=== PATIENT | female | born 1985 | race Hispanic/Latino ===

== ENCOUNTER 2020-04-08 10:59 | Inpatient (IN) | payer OTHER ==
[2020-04-08] VITALS (9 sets, daily range): BP systolic 122–137; BP diastolic 70–87
[~2020-04-08] VITALS: Ht 160 cm; Wt 63.5 kg
[2020-04-08] MEDS ORDERED: MULTTAB20 PO (11:12)
[2020-04-08 12:08] LABS: HEMATOCRIT 37.7 % (36.0-47.0); HEMOGLOBIN 12.9 g/dl (12.0-15.5); MEAN CORPUSCULAR HEMOGLOBIN 31.4 pg (27.0-33.0); MEAN CORPUSCULAR HGB CONC 34.2 g/dl (32.0-36.5); MEAN CORPUSCULAR VOLUME 91.7 fl (80.0-96.0); PLATELET COUNT, AUTOMATED 182 10^3/uL (150-450); RED BLOOD COUNT 4.11 10^6/uL (4.00-5.40); WHITE BLOOD COUNT 9.2 10^3/uL (4.0-10.0)
[2020-04-08] MEDS ORDERED: LACTATED RINGER'S 1000 ML IV STA (13:02)
[2020-04-08] MEDS ORDERED: LR 1,000 ML IV SCH (13:02)
[2020-04-08] MEDS ORDERED: miSOPROStol 25MCG 1/4 TABLET PO ONE ×2 (13:15→17:30)
[2020-04-08 13:32] LABS: ALT/SGPT 20 U/L (12-78); BILIRUBIN,TOTAL 0.3 MG/DL (0.2-1.0); CREATININE FOR GFR 0.59 MG/DL (0.55-1.30); GLOMERULAR FILTRATION RATE > 60.0 (>60); LDH LACTATE DEHYDROGENASE 161 U/L (84-246); URIC ACID 3.4 MG/DL (2.6-6.0)
--- NOTE | 2020-04-08 13:46 | HPEPDOC ---
Obstetrical History & Physical General Date of Admission Apr 08, 2020 at 10:59 History of Present Illness 34 yo G1 @ 37+0 by LMP C/W 11W US admitted for Gestational Hypertension. she reports any concerns today. she had GBS collected in clinic last week, but I do not have access to ahlta. so, i will treat patient at GBS unknown and will only treat if patient meets risk factor ( fever or ruptured for more than 18 hrs). reports regular movements, denies any LOF. notes some contractions. Care Care: Good Care Dating Final EDC: Apr 29, 2020 Final EDC by: LMP LMP: July 24, 2019 Estimated Date of Confinement: Apr 29, 2020 EGA at Admission: 37 Antepartum Course Diagnos(e)s 1. Gestational Hypertension- pre e labs pending 2. Echogenic Bowel on anatomy scan- negative work up. 3. GBS unknown- no risk factors yet.. 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 Past Medical History Medical History denies thyroid disease, asthma, diabetes Surgical History: Denies/None Social History Marital Status: Family situation: Spouse/partner home Psychosocial History: No pertinent psych hx * Smoker: non-smoker Alcohol: Denies Drugs: denies Abuse Violence Screening Have you been hit/kicked/slapp: No Have you been sexually assault: No Imunizations Tdap status: current Influenza Status: needs Allergies Coded Allergies: NSAIDS (Non-Steroidal Anti-Inflamma (Verified Allergy, Intermediate, 04/08/20) aspirin (Verified Allergy, Intermediate, Rash, Itching, 04/08/20) Medications Scheduled No122/Iron/Folic Acid ( Multi Tablet) 1 Each Tablet, 1 TAB PO DAILY Physical Examination Physical Examination GENERAL: Alert and oriented times three. BREAST: . ABDOMEN: Gravid and non-tender to touch. FETUS: Is vertex (VTX) by sterile vaginal examination (SVE), and TAUS HEART RATE: Regular rate and rhythm. LUNGS: Clear to auscultation EXTREMITIES: No edema. No clonus. Vital Signs/I&O Vital Signs Date Time Temp Pulse Resp B/P (MAP) Pulse Ox O2 Delivery O2 Flow Rate FiO2 04/08/20 13:00 92 135/85 (102) 1/18/21 11:19 98.6 17 Laboratory Data 24H LABS Laboratory Tests 2 04/08/20 11:13: Serology Scanned Report Hepatitis B Testing 04/08/20 11:37: Nucleated Red Blood Cells % (auto) 0.0, Syphilis Serology NONREACTIVE, Coronavirus (COVID-19)(PCR) NEGATIVE CBC/BMP Laboratory Tests 04/08/20 11:37 Pertinent Laboratoy Data Blood Type: O+ RBC Antibody Screen: Negative HIV: Negative Hepatitis B: Negative Hepatitis C: Unknown Rapid Plasma Reagin: Nonreactive Rubella: Immune Varicella: Immune Chlamydia/Gonorrhea: Negative Group B Streptococcus: Unknown Quad Screen Test: Unknown Cystic Fibrosis: Negative Glucose Tolerance Test: 145 Anatomy Ultrasound Placenta Location: Anterior Other Ultrasounds M US ON 02/21/2020: NORMAL US, NO Echogenic bowels noted Vaginal Examination Dilation: 1cm Effacement: 50% Station: -2 Cervical Consistency: Soft Cervical Position: Middle Presentation: Cephalic presentation Assessment Heart Rate (FHR): 150 Variability: Moderate Decelerations: None Tocometer Contractions: Yes Frequency: irregular Duration: less than 60 seconds Strength: palpated as mild Multi-drug resistant Organism: No history of MDRO Assessment/Plan Assessment 34 yo G1 @ 37+0 by LMP C/W 11W US admitted for Gestational Hypertension. normal vital an admission. hemodynamically stable. RH Pos, cephalic on US, GBS unknown w/o risk factors. 1. Gestational Hypertension- pre e labs pending 2. Echogenic Bowel on anatomy scan- negative work up. 3. GBS unknown- no risk factors yet.. Plan Admit and orient. 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 Diet: one meal, then Clears Group B Streptococcus (GBS) unknown w/o risk factors ( no prematurity, no fever, not ruptured for over 18 hrs, no hx of GBS affected ) Labs and intravenous (IV) per unit protocol. Counseled on Pitocin and induction of labor (IOL). Lactated Ringers (LR): Bolus 1000 mL, then at 125 mL/hr. Anticipate [normal spontaneous delivery (). C-S as appropriate. ADRIAN THOMSON MD Apr 08, 2020 13:46
[2020-04-08 14:20] LABS: CREATININE,RANDOM URINE 84.5 MG/DL; TOTAL PROTEIN,RANDOM URINE 12.8 MG/DL (0.0-12.0)
[2020-04-08] MEDS ORDERED: miSOPROStol 25MCG 1/4 TABLET PV ONE (21:00)
[2020-04-09] VITALS (24 sets, daily range): BP systolic 101–150; BP diastolic 55–94
--- NOTE | 2020-04-09 06:29 | IPNPDOC ---
Obstetrical Progress Note Date of Service Apr 09, 2020 Subjective Late entry due to computer malfunction Patient was evaluated at Midnight on apr 09. She reports no pain and not feeling her contractions. has received 3 doses of Buccal cytotec. FHT: 135. Mod butch,+accels-decels---cat I tracing [place]: 3-06/29 SVE" 2/50/-2, Double lumen mace bulb placed 80/80 A/P Continues to be in latent labor. cat I tracing, normal vital since admission. p atient can have one meal and we can sleep with the mace bulb in place for cervical ripening. can resume continues monitoring in the AM. Objective Vital Signs Date Time Temp Pulse Resp B/P (MAP) Pulse Ox O2 Delivery O2 Flow Rate FiO2 04/08/20 18:50 82 135/75 (95) 04/08/20 18:01 98.8 16 ADRIAN THOMSON MD Apr 09, 2020 06:29
[2020-04-09] MEDS ORDERED: OXYTOCIN DRIP 30 UNITS in IV 1 EA IV SCH (09:45)
[2020-04-09] MEDS: LR 1,000 ML IV SCH ×2 (10:00→16:29)
--- NOTE | 2020-04-09 11:28 | IPNPDOC ---
Obstetrical Progress Note Date of Service Apr 09, 2020 Subjective 34 yo at 37w1d with DAWNA of 04/29/2020 admitted for gHTN. She with cook balloon that was placed at 0010 and is intact and in place. She denies any headache, chest pain, RUQ pain, and visual changes at this time. She has no complaints at this time. She has supportive family at the bedside. Objective Vital Signs Date Time Temp Pulse Resp B/P (MAP) Pulse Ox O2 Delivery O2 Flow Rate FiO2 04/09/20 08:48 96 18 120/83 (95) 04/09/20 07:24 98.8 Assessment Heart Rate (FHR): 135 Variability: Moderate Accelerations: Present Decelerations: None Tocometer Contractions: Yes Frequency: other (Occassional ) Assessment and Plan Age: 34 : 1 Term: 0 Pre-term: 0 Abortions: 0 Livin EGA at Admission: 37 (+0) Weeks & Days 37w1d Status: Reassuring Group B Streptococcus: Negative Anticipate: Vaginal Delivery Additional Comments Will start pitocin augmentation JASMINA JEAN-BAPTISTE CNM Apr 09, 2020 09:43
--- NOTE | 2020-04-09 12:37 | IPNPDOC ---
Obstetrical Progress Note Date of Service Apr 09, 2020 Subjective 34 yo at 37w1d admitted for gHTN. She denies headache, chest pain, RUQ pain, and visual changes. She has no further complaints at this time. She has supportive family at the bedside. Objective Vital Signs Date Time Temp Pulse Resp B/P (MAP) Pulse Ox O2 Delivery O2 Flow Rate FiO2 04/09/20 10:00 88 18 120/64 (82) 04/09/20 07:24 98.8 Cook balloon intact removed with 80/80 removed out of the vaginal and cervical balloons. Assessment Heart Rate (FHR): 135 Variability: Moderate Accelerations: Present Decelerations: None Tocometer Contractions: Yes Duration: other (every 3-5 minutes) Sterile Vaginal Examination Dilation: 6 cm Effacement (%): 50% Station: -3 Cervical Position: Posterior Postion/Presentation: Cephalic presentation Assessment and Plan Age: 34 : 1 Term: 0 Pre-term: 0 Abortions: 0 Livin EGA at Admission: 37 (+0) Weeks & Days 37w1d Status: Reassuring Group B Streptococcus: Negative Anticipate: Vaginal Delivery JASMINA JEAN-BAPTISTE CNM Apr 09, 2020 12:37
--- NOTE | 2020-04-09 21:12 | IPNPDOC ---
Text Note Date of Service The patient was seen on 04/09/20. NOTE Item Value Date Time White Blood Count 9.2 10^3/uL 04/08/20 1137 Red Blood Count 4.11 10^6/uL 04/08/20 1137 Hemoglobin 12.9 g/dl 04/08/20 1137 Hematocrit 37.7 % 04/08/20 1137 Mean Corpuscular Volume 91.7 fl 04/08/20 1137 Mean Corpuscular Hemoglobin 31.4 pg 04/08/20 1137 Mean Corpuscular Hemoglobin Concent 34.2 g/dl 04/08/20 1137 Red Cell Distribution Width 12.0 % 04/08/20 1137 Platelet Count 182 10^3/uL 04/08/20 1137 Nucleated Red Blood Cells % (auto) 0.0 % 04/08/20 1137 REVIEW PROGRESS TO DATE 04/09/2020 2100 HRS . PATIENT 34 YO AT 37 WEEKS FOR IOL DUE TO GHTN TO DATE HAD3 CYTOTEC 12 HOURS OF BALLOON CATHETER AND PITOCIN 20 MUNITS STARTED AT 100 AM 04/09/2020. HAS NORMAL BP THROUGHOUT THE DAY STILL 3 CM POSTERIOR -3 STATION THICK. CATEGORY 1 STRIP . PLAN TONIGHT D/C PITOCIN SHOWER SHAWN REVIEW PLAN TOMORROW AM VS,Fishbone, I+O VS, Fishbone, I+O Item Value Date Time Urine Random Creatinine 84.5 MG/DL 04/08/20 1338 Urine Random Total Protein 12.8 MG/DL H 04/08/20 1338 Item Value Date Time Creatinine 0.59 MG/DL 04/08/20 1137 Glomerular Filtration Rate > 60.0 04/08/20 1137 Uric Acid 3.4 MG/DL 04/08/20 1137 Total Bilirubin 0.3 MG/DL 04/08/20 1137 Aspartate Amino Transf (AST/SGOT) 18 U/L 04/08/20 1137 Alanine Aminotransferase (ALT/SGPT) 20 U/L 04/08/20 1137 Lactate Dehydrogenase 161 U/L 04/08/20 1137 Vital Signs Date Time Temp Pulse Resp B/P (MAP) Pulse Ox O2 Delivery O2 Flow Rate FiO2 04/09/20 18:22 78 18 118/60 (79) 04/09/20 15:18 98.2 I&O- Last 24 Hours up to 6 AM 04/09/20 06:00 Intake Total 811 ml Balance 811 ml Michel Zarco MD Apr 09, 2020 21:07
[2020-04-10 03:02] VITALS: BP 107/52
[2020-04-10 06:34] VITALS: BP 127/84
--- NOTE | 2020-04-10 09:52 | REP ---
INDICATION: GROWTH COMPARISON: None. TECHNIQUE: Transabdominal obstetrical ultrasound with color Doppler evaluation. FINDINGS: Examination demonstrates a single live intrauterine in cephalic presentation. motion is identified by technologist. Placenta is noted anterior and grade 2 without evidence for placenta previa or abruption. Amniotic fluid volume is normal. Cervix appears closed. Nuchal cord cannot be excluded. APRIL: 16.3 cm (7.4-24.3) Biophysical profile score: 8/8. Gestational age by LMP 37 weeks 2 days with DAWNA 04/29/2020. Gestational age by current measurements 35 weeks 4 days with DAWNA 05/11/2020. FHR equals 145 beats per minute. Estimated weight by current measurements 2926 grams (34thpercentile). Anatomical evaluation is limited and while no gross abnormalities are identified. The femur length and humerus length fall below the 5th percentile and may warrant correlation. IMPRESSION: 1. Single live intrauterine in cephalic presentation. 2. Nuchal cord cannot be excluded. 3. Amniotic fluid index and biophysical profile score are normal. <Electronically signed by Rosalio Parrish > 04/10/20 [id number]
--- NOTE | 2020-04-10 10:55 | DS.PDOC ---
Discharge Summary General Date of Admission Apr 08, 2020 at 10:59 Date of Discharge Apr 10, 2020 Discharge Summary HOSPITAL COURSE: Ms. Skaggs is a 34 yo who was admitted for an IOL on 08Apr2020 for concern of gestational hypertension at 37+0 weeks gestation. Her induction process was slow and she ultimately did not get past 3cm of dilation after >48 hours. Upon further records review, it became apparent that Sofie did not have gestational hypertension, but chronic hypertension. Pre eclampsia labs were obtained and were unremarkable. Her blood pressures were almost all normal throughout her stay on L&D. She had no symptoms. A BPP and growth scan were obtained on 10Apr2020 and were unremarkable (BPP was 8/8). The fetus has had a Cat I tracing throughout her hospital stay. She was given the option to continue with IOL or be discharged home with plan to proceed with IOL for CHTN on 16Apr2020 when she will be 38+1 weeks gestation. All risks and benefits were discussed of each strategy. She opted to be discharged home with close follow up in the office and plan for IOL on 16Apr2020. DISCHARGE MEDICATIONS: Please see below. ALLERGIES: Please see below. PHYSICAL EXAMINATION ON DISCHARGE: VITAL SIGNS: Please see below. GENERAL: AAOX3, sitting up in bed, pleasant and conversant, NAD CARDIOVASCULAR EXAMINATION: RRR RESPIRATORY EXAMINATION: CTAB ABDOMINAL EXAMINATION: Gravid uterus appropriate size for gestational age. No fundal tenderness. EXTREMITIES: No edema PSYCHIATRIC EXAMINATION: Affect appropriate LABORATORY DATA: Please see below. ACTIVITY: As tolerated DIET: Regular DISCHARGE PLAN: Discharge home DISPOSITION: Discharge home. DISCHARGE INSTRUCTIONS: 1. Appointment at [facility] on 12Apr2020 at 0805. ITEMS TO FOLLOWUP ON ON OUTPATIENT: 1. Appointment at [facility] on 12Apr2020 at 0805. DISCHARGE CONDITION: Stable. TIME SPENT ON DISCHARGE: Greater than 20 minutes. Radha Hernandez, Vital Signs/I&Os Vital Signs Date Time Temp Pulse Resp B/P (MAP) Pulse Ox O2 Delivery O2 Flow Rate FiO2 04/10/20 06:34 98.3 77 16 127/84 (98) I&O- Last 24 Hours up to 6 AM 04/10/20 05:59 Intake Total 1230 ml Output Total 1400 ml Balance -170 ml Discharge Medications Scheduled No122/Iron/Folic Acid ( Multi Tablet) 1 Each Tablet, 1 TAB PO DAILY, (Reported) Allergies Coded Allergies: NSAIDS (Non-Steroidal Anti-Inflamma (Verified Allergy, Intermediate, 04/08/20) aspirin (Verified Allergy, Intermediate, Rash, Itching, 04/08/20) RADHA HERNANDEZ DO Apr 10, 2020 10:55
--- NOTE | 2020-04-10 11:19 | IPNPDOC ---
Text Note Date of Service The patient was seen on 04/10/20. NOTE I assumed care of Sofie this morning. She's a 34 yo at 37+2 weeks gestation who was admitted for an IOL on 08Apr2020 for apparent gestational hypertension. Toxemia labs were obtained and were unremarkable, to include a pr:cr of 0.15. Her induction process was started with cytotec X3, and then a cook balloon. The cook balloon was removed yesterday and she was started on pitocin. She progressed to potentially 6cm dilated but was feeling no pain, despite being on 20mU of pitocin. Blood pressures remained essentially normal throughout her induction process, with only [address] Zarco took over yesterday evening and I received report from him. He examined her yesterday evening and felt her cervix was only 2-3cm dilated, thick, and posterior. He halted her induction yesterday evening at ~1900 and planned to re evaluate in the morning whether it should be continued or not. This morning, Sofie reports feeling well. She was able to sleep overnight. She denied any headaches, RUQ pain, visual changes, or SOB. Chaperoned by LUCERO Red Cervix: 3/50/-4, posterior. FHR tracing: Cat I with moderate variability, +accels, no decels. No contractions on tocometer. Formal BPP and growth scan at [facility]ology on 10Apr2020: 8/8 BPP with APRIL 16cm, and weight 2926 grams (34th percentile) I had a long discussion with Sofie and her regarding the plan moving forward. She is certainly not in active labor. She does not appear to have gestational hypertension. I reviewed her [facility] medical records and she has had elevated BP readings going back to 2018, the furthest back we can look. She rules in for chronic hypertension instead. In addition, her blood pressure (CHTN) does not appear to be worsening. status is reassuring today, her blood pressure is normal, and she has no symptoms of toxemia. I offered resuming her induction of labor this morning, or discharging her home (with close follow up) with plan for IOL on 16Apr2020 at 38+1 weeks gestation for CHTN. I discussed all risks and benefits of each decision. After thorough discussion, Sofie and her desire to return home. She will follow up with me in the office on Wednesday, 12Apr2020 at 0805 for an NST/APRIL and an appointment afterwards. I scheduled her for IOL on 16Apr2020 at 38+1 weeks gestation and I will be concrete products dispatcher that evening. She understands that she will be contacted by the L&D staff about what time to come in on that day. She also understands to return to care sooner should she experience headaches, RUQ pain, visual changes, SOB, bleeding, painful contractions, leakage of fluid, or decreased movement. All patient and questions answered to their satisfaction. 45 minutes of patient care Elmer Hernandez DO VS,Bryan, I+O VS, Bryan, I+O Vital Signs Date Time Temp Pulse Resp B/P (MAP) Pulse Ox O2 Delivery O2 Flow Rate FiO2 04/10/20 06:34 98.3 77 16 127/84 (98) I&O- Last 24 Hours up to 6 AM 04/10/20 05:59 Intake Total 1230 ml Output Total 1400 ml Balance -170 ml ELMER HERNANDEZ DO Apr 10, 2020 11:19
== END 2020-04-10 11:28 | disposition home or self-care (01) | DRG 833 ==
LOC: M LDI 10:59
PROVIDERS: ADMIT Obstetrics & Gynecology; ATTEND Obstetrics & Gynecology
PROC: 3E0DXGC Introduction of Other Therapeutic Substance into Mouth and Pharynx, External Approach (ICD-10-PCS; principal; 2020-04-08)
DX: O10.913 Unspecified pre-existing hypertension complicating pregnancy, third trimester (principal); Z3A.37 37 weeks gestation of pregnancy; Z88.6 Allergy status to analgesic agent; O61.0 Failed medical induction of labor

== ENCOUNTER 2020-04-16 07:10 | Inpatient (IN) | payer OTHER ==
[~2020-04-16] VITALS: Ht 160 cm; Wt 63.7 kg
[2020-04-16] VITALS (19 sets, daily range): BP systolic 107–144; BP diastolic 58–89
[~2020-04-16 07:10] MED LIST: MULTTAB20 PO
[2020-04-16 11:03] LABS: HEMATOCRIT 38.2 % (36.0-47.0); HEMOGLOBIN 12.8 g/dl (12.0-15.5); MEAN CORPUSCULAR HEMOGLOBIN 31.1 pg (27.0-33.0); MEAN CORPUSCULAR HGB CONC 33.5 g/dl (32.0-36.5); MEAN CORPUSCULAR VOLUME 92.9 fl (80.0-96.0); PLATELET COUNT, AUTOMATED 184 10^3/uL (150-450); RED BLOOD COUNT 4.11 10^6/uL (4.00-5.40); WHITE BLOOD COUNT 9.3 10^3/uL (4.0-10.0)
[2020-04-16] MEDS: LR 1,000 ML IV SCH ×2 (12:38→19:23)
[2020-04-16] MEDS: OXYTOCIN DRIP 30 UNITS in IV 1 EA IV SCH (12:39)
--- NOTE | 2020-04-16 12:48 | HPEPDOC ---
Obstetrical History & Physical General Date of Admission Apr 16, 2020 at 07:10 History of Present Illness Pt presenting for scheduled induction for HTN not on medications (chronic vs. gestational), denies bleeding, LOF, states reassuring movement and irregular contractions. Denies GAUTHIER, Vision changes, RUQ pain, or edema. 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 Past Medical History Medical History HTN Surgical History: [place] teeth Family History Significant Family History: Cancer (mother-liver cancer) Social History Marital Status: Family situation: Spouse/partner home Psychosocial History: No pertinent psych hx * Smoker: non-smoker Alcohol: Denies Drugs: denies Abuse Violence Screening Have you been hit/kicked/slapp: No Have you been sexually assault: No Imunizations Tdap status: current Allergies Coded Allergies: NSAIDS (Non-Steroidal Anti-Inflamma (Verified Allergy, Intermediate, 04/08/20) aspirin (Verified Allergy, Intermediate, Rash, Itching, 04/08/20) Medications Scheduled No122/Iron/Folic Acid ( Multi Tablet) 1 Each Tablet, 1 TAB PO DAILY Physical Examination Physical Examination GENERAL: Alert and oriented times three. BREAST: . ABDOMEN: Gravid and non-tender to touch. FETUS: Is vertex (VTX) by sterile vaginal examination (SVE), fetus is vertex (VTX) by Abelardo and TAUS. HEART RATE: Regular rate and rhythm. LUNGS: Clear to auscultation (CTA). EXTREMITIES: No edema. No clonus. Deep tendon reflexes (DTRs) normal. Laboratory Data 24H LABS Laboratory Tests 2 04/16/20 07:17: Serology Scanned Report Hepatitis B Testing 04/16/20 10:54: Nucleated Red Blood Cells % (auto) 0.0 CBC/BMP Laboratory Tests 04/16/20 10:54 Urine Culture: No Growth Pertinent Laboratoy Data Blood Type: O+ RBC Antibody Screen: Negative HIV: Negative Hepatitis B: Negative Rapid Plasma Reagin: Nonreactive Rubella: Immune Varicella: Immune Chlamydia/Gonorrhea: Negative Group B Streptococcus: Negative Quad Screen Test: Negative Cystic Fibrosis: Negative Anatomy Ultrasound Placenta Location: Anterior Normal Anatomy: Yes Placenta Previa: No Vaginal Examination Dilation: 4 cm Effacement: 70% Station: -3 Cervical Consistency: Soft Cervical Position: Middle Presentation: Cephalic presentation Position: Vertex (occiput) Assessment Heart Rate (FHR): 130 Variability: Moderate Accelerations: Positive Decelerations: None Tocometer Contractions: Yes Frequency: every 2-5 min. Duration: greater than 60 seconds Strength: palpated as mild, resting tone palp/soft Multi-drug resistant Organism: No history of MDRO Assessment/Plan Assessment Sofie is a 34-year-old (G)1 para (P)0 at 38+1 weeks by 11+4-week ultrasound. Presents to Labor and Delivery (L&D) for scheduled IOL. Plan Admit and orient. Growth Media Mixer Mushroom and consent for IOL and delivery. Diet: clear liquid. Group B Streptococcus (GBS) negative. Labs and intravenous (IV) per unit protocol. Counseled on Pitocin and induction of labor (IOL). Lactated Ringers (LR): at 125 mL/hr. Anticipate [normal spontaneous delivery ()]. C-S as appropriate. SUGEY COFFMAN CNM Apr 16, 2020 12:48
--- NOTE | 2020-04-16 21:02 | IPNPDOC ---
Text Note Date of Service The patient was seen on 04/16/20. NOTE Presented to room for assessment of progress. Sofie reports feeling well, and only endorses mild cramping. She continues to deny any headaches, RUQ pain, or visual changes. Vitals - BPs normal to only mildly elevated. Chaperoned by RN Cervix: /-3, posterior. head ballotable. FHR tracing: Cat I with moderate variability, +accels, no decels, ctx Q 3-4 minutes Sofie has been on 20mU of pitocin for nearly the last 3 hours. No real progress has been made. She is not in active labor and head is not well engaged enough to perform amniotomy. We discussed the next step moving forward. She reports feeling very tired and hungry. Plan will be to stop pitocin now, allow her to shower and eat, then administer dose of 50mg cytotec PO. 4-6 hours after that dose we will restart pitocin. Will AROM when feasible to do so. All patient questions answered. DO JEISON Fowler Fishbone I+O VSBryan, I+O Laboratory Tests 04/16/20 10:54 Vital Signs Date Time Temp Pulse Resp B/P (MAP) Pulse Ox O2 Delivery O2 Flow Rate FiO2 04/16/20 20:29 96 18 128/83 (98) 04/16/20 19:29 97.3 98 Room Air RADHA ARREAGA DO Apr 16, 2020 21:02
[2020-04-16] MEDS ORDERED: miSOPROStol 50MCG 1/2 TABLET PO ONE (21:30)
[2020-04-17] VITALS (14 sets, daily range): BP systolic 106–132; BP diastolic 53–72
[2020-04-17] MEDS: LR 1,000 ML IV SCH ×2 (04:19→10:27)
[2020-04-17] MEDS: OXYTOCIN DRIP 30 UNITS in IV 1 EA IV SCH (04:19)
--- NOTE | 2020-04-17 06:37 | IPNPDOC ---
Text Note Date of Service The patient was seen on 04/17/20. NOTE Patient seen and examined this morning. Sofie reports feeling cramping, becoming more significant. Chaperoned by RN Cervix: 4-5/70/-2. head still ballotable. FHR tracing: Cat I with moderate variability, +accels, no decels. Contractions regular. Pitocin currently at 10mU. Will continue to titrate to effect. head appears to be descending more now. Plan for amniotomy at next exam if feasible. Epidural if and when desired. All patient questions answered. Radha Hernandez DO VS,Bryan, I+O VS, Bryan, I+O Laboratory Tests 04/16/20 10:54 Vital Signs Date Time Temp Pulse Resp B/P (MAP) Pulse Ox O2 Delivery O2 Flow Rate FiO2 04/17/20 05:49 97.6 71 18 114/62 (79) 04/17/20 00:04 98 04/16/20 19:29 Room Air I&O- Last 24 Hours up to 6 AM 04/17/20 06:00 Intake Total 510.8 ml Output Total 1125 ml Balance -614.2 ml RADHA HERNANDEZ DO Apr 17, 2020 06:37
--- NOTE | 2020-04-17 08:13 | IPNPDOC ---
Obstetrical Progress Note Date of Service Apr 17, 2020 Subjective 34 yo at 38w2d with DAWNA of 29 APR 2020 admitted for cHTN. She denies headache, chest pain, RUQ pain, and visual changes at this time. She has supportive family at the bedside. During her course of labor, she has received pitocin to 20 mu/min and then had a pitocin rest, then was given 1 dose of cytotec, and now she is currently on pitocin at 12 mu/min. Discussed plan for AROM and placement of IUPC with patient and spouse and they are agreeable to plan. Objective Vital Signs Date Time Temp Pulse Resp B/P (MAP) Pulse Ox O2 Delivery O2 Flow Rate FiO2 04/17/20 06:19 67 18 132/64 (86) 04/17/20 05:49 97.6 04/17/20 00:04 98 04/16/20 19:29 Room Air AROM for clear fluid IUPC placed without difficulty Assessment Heart Rate (FHR): 135 Variability: Moderate Accelerations: Present Decelerations: Early Tocometer Contractions: Yes Frequency: other (every 3-6 minutes) Sterile Vaginal Examination Dilation: 5 cm Effacement (%): 70% Station: -2 Cervical Consistency: Soft Cervical Position: Middle Postion/Presentation: Cephalic presentation Assessment and Plan Age: 34 : 1 Term: 0 Pre-term: 0 Abortions: 0 Livin EGA at Admission: 38 (+1) Weeks & Days 38w2d Status: Reassuring Group B Streptococcus: Negative Anticipate: Vaginal Delivery JASMINA JEAN-BAPTISTE CNM Apr 17, 2020 08:13
[2020-04-17] MEDS ORDERED: BUTORPHANOL 2 MG/ML INJ (J0595) IV ONE (10:15)
[2020-04-17] MEDS ORDERED: PROMETHAZINE INJ 25 MG/ML VIAL (J2550) IV ONE (10:15)
--- NOTE | 2020-04-17 12:10 | IPNPDOC ---
Obstetrical Progress Note Date of Service Apr 17, 2020 Subjective 34 yo at 38w2d with DAWNA of 29 APR 2020 admitted for cHTN. She reports more vaginal pressure. She is coping well with her contractions. She has supportive family at the bedside. Objective Vital Signs Date Time Temp Pulse Resp B/P (MAP) Pulse Ox O2 Delivery O2 Flow Rate FiO2 04/17/20 10:53 18 04/17/20 06:19 67 132/64 (86) 04/17/20 05:49 97.6 04/17/20 00:04 98 04/16/20 19:29 Room Air Assessment Heart Rate (FHR): 125 Variability: Moderate Accelerations: Present Decelerations: Variable Tocometer Contractions: Yes Frequency: other (every 3 minutes) Sterile Vaginal Examination Dilation: 9 cm Effacement (%): 100% Station: 0 Postion/Presentation: Cephalic presentation Assessment and Plan Age: 34 : 1 Term: 0 Pre-term: 0 Abortions: 0 Livin EGA at Admission: 38 (+1) Weeks & Days 38w1d Status: Reassuring Group B Streptococcus: Negative Anticipate: Vaginal Delivery JASMINA JEAN-BAPTISTE CNM Apr 17, 2020 12:08
[2020-04-17] MEDS ORDERED: OXYTOCIN DRIP 30 UNITS in IV 1 EA IV SCH (13:50)
[2020-04-17] MEDS ORDERED: METHYLERGONOVINE MALEATE 0.2 MG TAB PO PRN (14:00)
[2020-04-17] MEDS ORDERED: ACETAMINOPHEN TAB 650MG DOSE (2X325MG) PO PRN (14:00)
[2020-04-17] MEDS ORDERED: PROMETHAZINE 25 MG TAB PO PRN (14:00)
[2020-04-17] MEDS ORDERED: LIDOCAINE 1% MDV 20ML VIAL INFIL ONE (14:00)
[2020-04-17] MEDS ORDERED: ACETAMINOPHEN 500 MG TAB PO PRN (14:00)
[2020-04-17] MEDS ORDERED: BENZOCAINE 20% HEMORRHOIDAL OINTMENT 28GM TUBE TOP PRN (14:00)
--- NOTE | 2020-04-17 14:08 | DNPDOC ---
[facility] Delivery Note Delivery Note Date of the procedure: 04/17/2020 Preoperative diagnosis: 1. 34 y/o at 38w2d 2. Induction of labor for CHTN 3. GBS negative 4. O positive Postoperative diagnosis: 1. 34 y/o now at 38w2d 2. Induction of labor for CHTN 3. GBS negative 4. O positive 5. Second degree perineal laceration 6. Left labial laceration Procedure: Delivering Provider: Jasmina Singh CNM, PONCHO, KATHIA [employer] Back-up: Michel Zarco MD Anesthesia: Epidural EBL: 450 Specimens: Cord blood collected. Findings: Live female weighing 6 lb 6 oz, 2900 grams with Apgars of 7 and 9 at 1 and 5 minutes respectively. Complications: None Details of the procedure: The patient presented for induction of labor for CHTN. Patient was 4 cm dilated and was then admitted to L&D. Labor progressed without Pitocin and membranes were ruptured artificially for clear fluid.. The patient progressed to fully dilated and entered the second stage of labor, at which point she began to push over an intact perineum. The head was then delivered. The nuchal cord x3 was noted. The rest of the was delivered. The was placed on maternal abdomen and the cord was doubly clamped and cut. Cord blood was collected and a 3 vessel cord was noted. Manual exploration of the uterus was not performed. Uterine tone was firm. Perineum was inspected and a second degree perineal laceration and a left labial laceration were found. These were repaired with 2-0 chromic. Cervical exam was normal. Rectal exam was not noted. Sponge, instrument, and needle counts were correct. The patient tolerated the procedure well and is stable in recovery. Note was written and electronically signed by: Jasmina Singh CNM, PONCHO, JASMINA COPE CNM Apr 17, 2020 14:08
[2020-04-17] MEDS: DOCUSATE SODIUM 100MG CAPSULE PO SCH (20:35)
[2020-04-18 06:00] VITALS: BP 141/71
[2020-04-18] MEDS ORDERED: DOK1CAP7 PO (07:09)
[2020-04-18] MEDS: DOCUSATE SODIUM 100MG CAPSULE PO SCH (07:24)
[2020-04-18 07:35] VITALS: BP 141/71
--- NOTE | 2020-04-18 08:18 | DSES ---
DISCHARGE SUMMARY DATE OF ADMISSION: 04/16/2020 DATE OF DISCHARGE: 04/18/2020 BRIEF HISTORY: A 34-year-old 1, now para 1, admitted at 38 weeks, 1 day of gestation for induction of labor because of hypertension. No medications. She had an epidural in place, delivered a live female , 6 pounds 6 ounces, 2900 grams, scores of 7 and 9 and one and five minutes respectively. She had a second degree perineal tear which was oversewn in the usual fashion. On discharge, hemoglobin 12.8, hematocrit 38.2 and platelets were 184. PHYSICAL EXAMINATION: VITAL SIGNS: This morning 141/71, respirations 16, pulse 79, temperature 98.4. In reviewed her earlier blood pressures, they were all under 120 and no evidence of mid-range to high range blood pressures. On discharge, we discussed phlebitis, cystitis, mastitis, endometritis, cellulitis, diet, exercise, pain management, perineal, breast and wound care. The rest of the examination unremarkable. Normocephalic, atraumatic. Neck full range of motion. Pupils are equal and reactive to light and accommodation. Distal pulses are symmetric. No evidence of deep venous thrombosis, pulmonary embolism (PE) or superficial phlebitis. CHEST: Clear bilaterally to bases. No wheezes or rhonchi. No costovertebral angle (CVA) tenderness. ABDOMEN: Soft. Four quadrant bowel sounds are noted. Uterus 2 below. Lochia is moderate. Perineum is healing. No rashes, lesions or purities. No arthralgias or myalgias. No complaint of joint pain. No complaint of cough, wheeze, shortness of breath or dyspnea on exertion. No nausea, diarrhea or constipation. No urgency or frequency. SUMMARY: A term gestation delivered of a live female infant. Follow up in six weeks at [facility]. 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 All questions answered, 20 minute discussion. Patient was discharged improved.
[2020-04-18] MEDS ORDERED: PRENATAL VITAMINS CHEWABLE TABLET PO SCH (09:00)
[2020-04-18 09:40] LABS: HEMATOCRIT 31.5 % (36.0-47.0); MEAN CORPUSCULAR HEMOGLOBIN 31.8 pg (27.0-33.0); MEAN CORPUSCULAR VOLUME 93.5 fl (80.0-96.0); PLATELET COUNT, AUTOMATED 149 10^3/uL (150-450); RED BLOOD COUNT 3.37 10^6/uL (4.00-5.40); WHITE BLOOD COUNT 15.4 10^3/uL (4.0-10.0)
[2020-04-18 09:50] LABS: HEMOGLOBIN 10.7 g/dl (12.0-15.5)
[2020-04-18 10:14] LABS: ALT/SGPT 26 U/L (12-78); BILIRUBIN,TOTAL 0.2 MG/DL (0.2-1.0); CREATININE FOR GFR 0.64 MG/DL (0.55-1.30); GLOMERULAR FILTRATION RATE > 60.0 (>60); LDH LACTATE DEHYDROGENASE 209 U/L (84-246); URIC ACID 3.2 MG/DL (2.6-6.0)
== END 2020-04-18 17:25 | disposition home or self-care (01) | DRG 807 ==
LOC: M LDI 07:10 → M OBS 04-17 16:10
PROVIDERS: ADMIT Registered Nurse; ATTEND Registered Nurse Maternal Newborn
PROC: 3E033VJ Introduction of Other Hormone into Peripheral Vein, Percutaneous Approach (ICD-10-PCS; 2020-04-16)
PROC: 10E0XZZ Delivery of Products of Conception, External Approach (ICD-10-PCS; principal; 2020-04-17)
PROC: 0KQM0ZZ Repair Perineum Muscle, Open Approach (ICD-10-PCS; 2020-04-17)
PROC: 10907ZC Drainage of Amniotic Fluid, Therapeutic from Products of Conception, Via Natural or Artificial Opening (ICD-10-PCS; 2020-04-17)
PROC: 0HQ9XZZ Repair Perineum Skin, External Approach (ICD-10-PCS; 2020-04-17)
DX: O10.02 Pre-existing essential hypertension complicating childbirth (principal); Z37.0 Single live birth; Z3A.38 38 weeks gestation of pregnancy; O70.1 Second degree perineal laceration during delivery; O70.0 First degree perineal laceration during delivery; O69.81X0 Labor and delivery complicated by cord around neck, without compression, not applicable or unspecified